=== PATIENT | male | born 1980 | race Two or more races ===

== ENCOUNTER 2022-05-25 17:35 | Emergency (ER) | payer BC, OTHER ==
[~2022-05-25] VITALS: Ht 172.7 cm; Wt 99.8 kg
[2022-05-25 18:01] VITALS: BP 173/112
[2022-05-25] MEDS ORDERED: PRED50TA PO (20:33)
[2022-05-25] MEDS ORDERED: ALBU18HF2 INH (20:33)
--- NOTE | 2022-05-25 20:40 | NUR ---
Patient discharged to home in stable condition. Written and verbal after care instructions given. Patient verbalizes understanding of instruction. Pt ambulatory with a steady gait
== END 2022-05-25 20:41 | disposition home or self-care (01) ==
LOC: ER 17:49
DX: J20.9 Acute bronchitis, unspecified (principal); Z20.822 Contact with and (suspected) exposure to COVID-19; Z72.0 Tobacco use
CPT/HCPCS: 99284; 71045; 87426; 87804 ×2; C9803